=== PATIENT | male | born 1965 | race Caucasian/White ===

== ENCOUNTER 2020-08-18 12:48 | Emergency (ER) | payer OTHER ==
[2020-08-18 13:38] LABS: #Basophils 0.1 10x3/uL (0.0-0.2); #Eosinphils 0.1 10x3/uL (0.0-0.5); #Monocytes 1.3 10x3/uL (0.0-1.1); %Basophils 0.3 % (0.0-2.0); %Eosinophils 0.6 % (0.0-6.0); %Lymphocytes 13.9 % (18.0-47.0); %Monocytes 8.1 % (0.0-10.0); %Neutrophils 76.5 % (40.0-75.0); Hemoglobin 10.8 g/dL (13.5-17.5); Mean Corpuscular HGB CONC 33.5 g/dL (32.0-36.0); Mean Corpuscular Hemoglobin 30.9 pg (27.0-33.0); Mean Platelet Volume 9.8 fl (7.4-10.4); Platelet Count 190 10x3/uL (150-450); RBC Distribution Width 15.4 % (11.5-14.5); White Blood Cell (WBC) Count 15.7 10x3/uL (3.5-10.5)
[2020-08-18 13:51] LABS: ALT (SGPT) 12 U/L (8-55); AST (SGOT) 11 U/L (5-34); Albumin 3.6 g/dL (3.5-5.0); Alkaline Phosphatase 60 U/L (40-110); Anion Gap 13 mmol/L (10-20); BUN (Urea Nitrogen) 35 mg/dL (8.4-25.7); Bilirubin, Total 0.6 mg/dL (0.2-1.2); Calc. Creatinine Clearance 0 mL/min (70-130); Calcium 8.6 mg/dL (7.8-10.44); Carbon Dioxide 17 mmol/L (22-29); Chloride 106 mmol/L (98-107); Globulin 3.6 g/dL (2.4-3.5); Glucose 119 mg/dL (70-105); Potassium 4.1 mmol/L (3.5-5.1); Protein, Total 7.2 g/dL (6.0-8.3); Sodium 132 mmol/L (136-145)
[2020-08-18] MEDS ORDERED: Cefepime 2 GM VIAL ONE (13:58)
[2020-08-18] MEDS ORDERED: Aspirin 325 MG TAB ONE (13:58)
== END 2020-08-18 18:33 | disposition short-term general hospital (02) ==
LOC: CSHERS 12:48
DX: E11.69 Type 2 diabetes mellitus with other specified complication (principal); M86.9 Osteomyelitis, unspecified; R07.9 Chest pain, unspecified; D72.829 Elevated white blood cell count, unspecified; I10 Essential (primary) hypertension; I25.2 Old myocardial infarction; Z87.891 Personal history of nicotine dependence
CPT/HCPCS: 71045; 80053; 83605; 84484; 85025; 87040; 93005; 96365; 96366; 96367; J0692; J3370

== ENCOUNTER 2021-04-01 17:50 | Emergency (ER) | payer OTHER ==
[2021-04-01 18:25] LABS: #Basophils 0.1 10x3/uL (0.0-0.2); #Eosinphils 0.2 10x3/uL (0.0-0.5); #Monocytes 0.8 10x3/uL (0.0-1.1); #Neutrophils 5.2 10x3/uL (1.5-8.4); %Basophils 0.8 % (0.0-2.0); %Eosinophils 2.4 % (0.0-6.0); %Lymphocytes 28.5 % (18.0-47.0); %Monocytes 8.6 % (0.0-10.0); %Neutrophils 59.4 % (40.0-75.0); Hemoglobin 12.1 g/dL (13.5-17.5); Mean Corpuscular Hemoglobin 33.1 pg (27.0-33.0); Mean Corpuscular Volume 97.3 fl (81.2-95.1); Mean Platelet Volume 9.6 fl (7.4-10.4); Platelet Count 239 10x3/uL (150-450); RBC Distribution Width 12.2 % (11.5-14.5); Red Blood Cell (RBC) Count 3.66 10x6/uL (4.32-5.72); White Blood Cell (WBC) Count 8.8 10x3/uL (3.5-10.5)
[2021-04-01 18:42] LABS: ALT (SGPT) 14 U/L (8-55); AST (SGOT) 15 U/L (5-34); Albumin 3.6 g/dL (3.5-5.0); Alkaline Phosphatase 54 U/L (40-110); Anion Gap 13 mmol/L (10-20); BUN (Urea Nitrogen) 29 mg/dL (8.4-25.7); Bilirubin, Total 0.4 mg/dL (0.2-1.2); Calc. Creatinine Clearance 0 mL/min (70-130); Calcium 8.4 mg/dL (7.8-10.44); Carbon Dioxide 20 mmol/L (22-29); Chloride 110 mmol/L (98-107); Globulin 3.4 g/dL (2.4-3.5); Glucose 105 mg/dL (70-105); Potassium 5.6 mmol/L (3.5-5.1); Sodium 137 mmol/L (136-145)
[2021-04-01 20:51] LABS: Troponin I Less than 0.010 ng/mL (< 0.028)
== END 2021-04-01 21:35 | disposition home or self-care (01) ==
LOC: EEVIPCON 17:50 → CSHERS 17:50
DX: R07.9 Chest pain, unspecified (principal); I10 Essential (primary) hypertension; I25.2 Old myocardial infarction; I25.10 Atherosclerotic heart disease of native coronary artery without angina pectoris; E11.51 Type 2 diabetes mellitus with diabetic peripheral angiopathy without gangrene; Z87.891 Personal history of nicotine dependence; Z79.82 Long term (current) use of aspirin; Z79.84 Long term (current) use of oral hypoglycemic drugs; Z79.02 Long term (current) use of antithrombotics/antiplatelets; Z86.73 Personal history of transient ischemic attack (TIA), and cerebral infarction without residual deficits
CPT/HCPCS: 36415; 71045; 80053; 83880; 84484; 85025; 93005

== ENCOUNTER 2022-08-12 22:39 | Emergency (ER) | payer OTHER ==
[2022-08-13] MEDS ORDERED: Metoclopramide HCl 10 MG/2 ML VIAL ONE (00:01)
[2022-08-13 00:09] LABS: #Basophils 0.1 10x3/uL (0.0-0.2); #Eosinphils 0.1 10x3/uL (0.0-0.5); #Monocytes 0.7 10x3/uL (0.0-1.1); #Neutrophils 6.4 10x3/uL (1.5-8.4); %Basophils 0.8 % (0.0-2.0); %Eosinophils 1.4 % (0.0-6.0); %Lymphocytes 22.3 % (18.0-47.0); %Monocytes 7.4 % (0.0-10.0); %Neutrophils 67.8 % (40.0-75.0); Hemoglobin 13.2 g/dL (13.5-17.5); Mean Corpuscular HGB CONC 34.7 g/dL (32.0-36.0); Mean Platelet Volume 10.4 fl (7.4-10.4); Platelet Count 193 10x3/uL (150-450); RBC Distribution Width 13.8 % (11.5-14.5); White Blood Cell (WBC) Count 9.5 10x3/uL (3.5-10.5)
[2022-08-13 00:17] LABS: ALT (SGPT) 15 U/L (8-55); AST (SGOT) 16 U/L (5-34); Albumin 4.1 g/dL (3.5-5.0); Alkaline Phosphatase 68 U/L (40-110); Anion Gap 16 mmol/L (10-20); BUN (Urea Nitrogen) 21 mg/dL (8.4-25.7); Bilirubin, Total 0.4 mg/dL (0.2-1.2); Calc. Creatinine Clearance 0 mL/min (70-130); Carbon Dioxide 18 mmol/L (22-29); Chloride 109 mmol/L (98-107); Estimated GFR 68; Globulin 3.1 g/dL (2.4-3.5); Glucose 111 mg/dL (70-105); Potassium 4.4 mmol/L (3.5-5.1); Protein, Total 7.2 g/dL (6.0-8.3); Sodium 139 mmol/L (136-145)
[2022-08-13 00:45] LABS: SARS-CoV-2 NAA Rapid Test Not Detected (NotDetected)
[2022-08-13 01:41] LABS: Troponin I 0.021 ng/mL (< 0.028)
== END 2022-08-13 02:50 | disposition home or self-care (01) ==
LOC: EDBD 22:39 → CSHERS 22:39
DX: G43.909 Migraine, unspecified, not intractable, without status migrainosus (principal); R07.9 Chest pain, unspecified; I25.10 Atherosclerotic heart disease of native coronary artery without angina pectoris; E11.9 Type 2 diabetes mellitus without complications; K21.9 Gastro-esophageal reflux disease without esophagitis; I10 Essential (primary) hypertension; Z87.891 Personal history of nicotine dependence; Z79.899 Other long term (current) drug therapy; Z79.84 Long term (current) use of oral hypoglycemic drugs; Z79.4 Long term (current) use of insulin; Z20.822 Contact with and (suspected) exposure to COVID-19
CPT/HCPCS: 70450; 71045; 80053; 84484; 85025; 93005; 96365; J2765; U0002

== ENCOUNTER 2022-09-05 15:11 | Inpatient (IN) | payer OTHER ==
[~2022-09-05 15:11] MED LIST: Iopamidol 300 61% 100 ML VIAL FS ONE
[2022-09-05 17:11] LABS: #Eosinphils 0.1 10x3/uL (0.0-0.5); #Monocytes 0.6 10x3/uL (0.0-1.1); #Neutrophils 15.7 10x3/uL (1.5-8.4); %Basophils 0.2 % (0.0-2.0); %Eosinophils 0.6 % (0.0-6.0); %Lymphocytes 7.1 % (18.0-47.0); %Monocytes 3.1 % (0.0-10.0); %Neutrophils 88.2 % (40.0-75.0); Mean Corpuscular HGB CONC 34.1 g/dL (32.0-36.0); Mean Corpuscular Hemoglobin 32.5 pg (27.0-33.0); Mean Corpuscular Volume 95.4 fl (81.2-95.1); Mean Platelet Volume 10.4 fl (7.4-10.4); Platelet Count 162 10x3/uL (150-450); RBC Distribution Width 13.3 % (11.5-14.5); Red Blood Cell (RBC) Count 4.31 10x6/uL (4.32-5.72); White Blood Cell (WBC) Count 17.8 10x3/uL (3.5-10.5)
[2022-09-05] MEDS ORDERED: Acetaminophen 500 MG TAB ONE (17:16)
[2022-09-05] MEDS ORDERED: Vancomycin 1 GM VIAL ONE (17:17)
[2022-09-05] MEDS ORDERED: Cefepime 2 GM VIAL ONE (17:17)
[2022-09-05 17:26] LABS: ALT (SGPT) 14 U/L (8-55); AST (SGOT) 17 U/L (5-34); Alkaline Phosphatase 79 U/L (40-110); Anion Gap 14 mmol/L (10-20); BUN (Urea Nitrogen) 18 mg/dL (8.4-25.7); Bilirubin, Total 0.6 mg/dL (0.2-1.2); Calc. Creatinine Clearance 0 mL/min (70-130); Calcium 9.3 mg/dL (7.8-10.44); Carbon Dioxide 17 mmol/L (22-29); Chloride 110 mmol/L (98-107); Estimated GFR 79; Globulin 3.8 g/dL (2.4-3.5); Glucose 136 mg/dL (70-105); Potassium 3.8 mmol/L (3.5-5.1); Protein, Total 7.8 g/dL (6.0-8.3); Sodium 137 mmol/L (136-145)
[2022-09-05 18:29] LABS: SARS-CoV-2 NAA Rapid Test Not Detected (NotDetected)
[2022-09-05] MEDS ORDERED: HYDROcodone/Acetaminophen 5/325 mg Tablet PO PRN (20:20)
[2022-09-05] MEDS ORDERED: Zolpidem Tartrate 5 MG TAB PO PRN (20:20)
[2022-09-05] MEDS ORDERED: Ondansetron PF 4 MG/2 ML Vial IVP PRN (20:20)
[2022-09-05] MEDS ORDERED: Guaifenesin DM 100-10/5 ML UDCUP PO PRN (20:20)
[2022-09-05] MEDS ORDERED: Dextrose 5% in Water 1,000 ML IV PRN (20:20)
[2022-09-05] MEDS ORDERED: Acetaminophen 325 MG TAB PO PRN (20:20)
[2022-09-05] MEDS ORDERED: Senokot S 8.6-50 MG TAB PO PRN (20:20)
[2022-09-05] MEDS ORDERED: Calcium Carbonate 500 MG ChewTAB PO PRN (20:20)
[2022-09-05] MEDS ORDERED: Dextrose 50% Abboject 50 ML SYRINGE SLOW IVP PRN (20:20)
[2022-09-05] MEDS ORDERED: Pharmacy to Dose ABX/VANCOMYCIN IVPB PRN (20:28)
[2022-09-05] MEDS ORDERED: Atorvastatin Calcium 40 MG TAB ONE (22:41)
[2022-09-05] MEDS ORDERED: Carvedilol 12.5 MG TAB ONE (22:41)
[2022-09-05] MEDS ORDERED: Lactated Ringer's 1,000 ML IV SCH (23:00)
[2022-09-05] MEDS ORDERED: Atorvastatin Calcium 40 MG TAB PO SCH (23:00)
[2022-09-05] MEDS ORDERED: Artificial Tear Sol 15 ML BOT EA EYE SCH (23:00)
[2022-09-05] MEDS ORDERED: Carvedilol 3.125 MG TAB PO SCH (23:00)
[2022-09-05] MEDS ORDERED: Topiramate 100 MG TAB PO SCH ×2 (23:00→23:15)
[2022-09-06 04:03] LABS: #Eosinphils 0.2 10x3/uL (0.0-0.5); #Monocytes 0.7 10x3/uL (0.0-1.1); #Neutrophils 12.9 10x3/uL (1.5-8.4); %Basophils 0.2 % (0.0-2.0); %Eosinophils 1.3 % (0.0-6.0); %Lymphocytes 7.5 % (18.0-47.0); %Monocytes 4.3 % (0.0-10.0); %Neutrophils 85.8 % (40.0-75.0); Hemoglobin 12.7 g/dL (13.5-17.5); Mean Corpuscular HGB CONC 34.6 g/dL (32.0-36.0); Mean Corpuscular Hemoglobin 32.9 pg (27.0-33.0); Mean Corpuscular Volume 95.1 fl (81.2-95.1); Platelet Count 140 10x3/uL (150-450); RBC Distribution Width 13.6 % (11.5-14.5); Red Blood Cell (RBC) Count 3.86 10x6/uL (4.32-5.72); White Blood Cell (WBC) Count 15.1 10x3/uL (3.5-10.5)
[2022-09-06 04:19] LABS: Anion Gap 14 mmol/L (10-20); BUN (Urea Nitrogen) 16 mg/dL (8.4-25.7); Calc. Creatinine Clearance 0 mL/min (70-130); Carbon Dioxide 16 mmol/L (22-29); Chloride 113 mmol/L (98-107); Estimated GFR 101; Glucose 146 mg/dL (70-105); Potassium 3.7 mmol/L (3.5-5.1); Sodium 139 mmol/L (136-145)
[2022-09-06] MEDS: Cefepime 1 GM in Sodium Chloride 0.9% 100 ML IVPB SCH ×2 (05:10→17:58)
[2022-09-06] MEDS ORDERED: Cefepime 1 GM VIAL ONE (05:23)
[2022-09-06] MEDS ORDERED: Vancomycin 1 GM VIAL ONE (05:25)
[2022-09-06] MEDS: Vancomycin HCl 1 GM in Sodium Chloride 0.9% 250 ML 250 ML IVPB SCH ×3 (06:09→21:18)
[2022-09-06] MEDS ORDERED: Carvedilol 3.125 MG TAB ONE (08:29)
[2022-09-06] MEDS ORDERED: Clopidogrel Bisulfate 75 MG TAB ONE (08:32)
[2022-09-06] MEDS ORDERED: Furosemide 40 MG TAB ONE (08:32)
[2022-09-06] MEDS: Carvedilol 3.125 MG TAB PO SCH ×2 (08:50→19:05)
[2022-09-06] MEDS: Ferrous Sulfate 325 MG TAB PO SCH (08:50)
[2022-09-06] MEDS ORDERED: Furosemide 40 MG TAB PO SCH (09:00)
[2022-09-06] MEDS ORDERED: Lisinopril 5 MG TAB PO SCH (09:00)
[2022-09-06] MEDS ORDERED: Topiramate 100 MG TAB PO SCH ×2 (09:00)
[2022-09-06] MEDS: Clopidogrel Bisulfate 75 MG TAB PO SCH (09:04)
[2022-09-06] MEDS: Artificial Tear Sol 15 ML BOT EA EYE SCH ×2 (09:04→21:17)
[2022-09-06] MEDS: Spironolactone 25 MG TAB PO SCH (09:06)
[2022-09-06] MEDS: Topiramate 25 MG TAB PO SCH ×2 (09:06→21:18)
[2022-09-06] MEDS: Sertraline 25 MG TAB PO SCH (09:06)
[2022-09-06] MEDS: Furosemide 20 MG TAB PO SCH ×2 (09:09→21:18)
[2022-09-06] MEDS: HumaLOG 300 UNITS/3 ML VIAL SC PRN (12:20)
[2022-09-06] MEDS: Atorvastatin Calcium 40 MG TAB PO SCH (21:17)
[2022-09-07] MEDS: Cefepime 1 GM in Sodium Chloride 0.9% 100 ML IVPB SCH ×2 (04:45→17:56)
[2022-09-07 08:40] LABS: #Eosinphils 0.2 10x3/uL (0.0-0.5); #Monocytes 0.7 10x3/uL (0.0-1.1); #Neutrophils 9.6 10x3/uL (1.5-8.4); %Basophils 0.3 % (0.0-2.0); %Eosinophils 1.5 % (0.0-6.0); %Lymphocytes 9.8 % (18.0-47.0); %Neutrophils 81.9 % (40.0-75.0); Hemoglobin 12.7 g/dL (13.5-17.5); Mean Corpuscular HGB CONC 35.4 g/dL (32.0-36.0); Mean Corpuscular Hemoglobin 32.9 pg (27.0-33.0); Mean Platelet Volume 10.1 fl (7.4-10.4); Platelet Count 153 10x3/uL (150-450); RBC Distribution Width 13.2 % (11.5-14.5); Red Blood Cell (RBC) Count 3.86 10x6/uL (4.32-5.72); White Blood Cell (WBC) Count 11.8 10x3/uL (3.5-10.5)
[2022-09-07 08:48] LABS: Anion Gap 13 mmol/L (10-20); BUN (Urea Nitrogen) 16 mg/dL (8.4-25.7); Calc. Creatinine Clearance 0 mL/min (70-130); Calcium 8.7 mg/dL (7.8-10.44); Carbon Dioxide 17 mmol/L (22-29); Chloride 111 mmol/L (98-107); Estimated GFR 102; Glucose 162 mg/dL (70-105); Potassium 3.6 mmol/L (3.5-5.1); Sodium 137 mmol/L (136-145)
[2022-09-07 08:49] LABS: Vancomycin, Trough 13.9 ug/mL
[2022-09-07] MEDS: HYDROcodone/Acetaminophen 5/325 mg Tablet PO PRN ×2 (09:39→15:30)
[2022-09-07] MEDS: Carvedilol 3.125 MG TAB PO SCH ×2 (09:40→17:56)
[2022-09-07] MEDS: Topiramate 25 MG TAB PO SCH ×2 (09:41→20:58)
[2022-09-07] MEDS: Ferrous Sulfate 325 MG TAB PO SCH (09:43)
[2022-09-07] MEDS: Sertraline 25 MG TAB PO SCH (09:43)
[2022-09-07] MEDS: Clopidogrel Bisulfate 75 MG TAB PO SCH (09:44)
[2022-09-07] MEDS: Spironolactone 25 MG TAB PO SCH (09:48)
[2022-09-07] MEDS: Furosemide 20 MG TAB PO SCH ×2 (09:48→20:57)
[2022-09-07] MEDS: Vancomycin HCl 1 GM in Sodium Chloride 0.9% 250 ML 250 ML IVPB SCH ×2 (09:49→20:58)
[2022-09-07] MEDS: Artificial Tear Sol 15 ML BOT EA EYE SCH ×2 (10:51→20:56)
[2022-09-07] MEDS: HumaLOG 300 UNITS/3 ML VIAL SC PRN (12:35)
[2022-09-07] MEDS: metFORMIN 500 MG TAB PO SCH (17:56)
[2022-09-07] MEDS: Atorvastatin Calcium 40 MG TAB PO SCH (20:57)
[2022-09-08 04:55] LABS: #Basophils 0.1 10x3/uL (0.0-0.2); #Eosinphils 0.3 10x3/uL (0.0-0.5); #Monocytes 0.8 10x3/uL (0.0-1.1); #Neutrophils 5.9 10x3/uL (1.5-8.4); %Basophils 0.7 % (0.0-2.0); %Eosinophils 3.1 % (0.0-6.0); %Lymphocytes 21.4 % (18.0-47.0); %Neutrophils 65.2 % (40.0-75.0); Hemoglobin 11.6 g/dL (13.5-17.5); Mean Corpuscular HGB CONC 34.4 g/dL (32.0-36.0); Mean Corpuscular Hemoglobin 32.8 pg (27.0-33.0); Mean Corpuscular Volume 95.2 fl (81.2-95.1); Platelet Count 152 10x3/uL (150-450); RBC Distribution Width 13.4 % (11.5-14.5); Red Blood Cell (RBC) Count 3.54 10x6/uL (4.32-5.72); White Blood Cell (WBC) Count 9.1 10x3/uL (3.5-10.5)
[2022-09-08 05:13] LABS: Anion Gap 12 mmol/L (10-20); BUN (Urea Nitrogen) 22 mg/dL (8.4-25.7); Calc. Creatinine Clearance 0 mL/min (70-130); Calcium 8.4 mg/dL (7.8-10.44); Carbon Dioxide 18 mmol/L (22-29); Chloride 113 mmol/L (98-107); Estimated GFR 100; Glucose 155 mg/dL (70-105); Potassium 3.7 mmol/L (3.5-5.1); Sodium 139 mmol/L (136-145)
[2022-09-08] MEDS: Cefepime 1 GM in Sodium Chloride 0.9% 100 ML IVPB SCH ×2 (05:34→15:53)
[2022-09-08] MEDS: HumaLOG 300 UNITS/3 ML VIAL SC PRN (06:37)
[2022-09-08] MEDS ORDERED: Aspirin Chewable 81 MG TAB PO SCH (09:00)
[2022-09-08] MEDS: metFORMIN 500 MG TAB PO SCH ×2 (10:05→16:59)
[2022-09-08] MEDS: Topiramate 25 MG TAB PO SCH (10:05)
[2022-09-08] MEDS: Spironolactone 25 MG TAB PO SCH (10:05)
[2022-09-08] MEDS: Carvedilol 3.125 MG TAB PO SCH ×2 (10:05→16:59)
[2022-09-08] MEDS: Furosemide 20 MG TAB PO SCH (10:06)
[2022-09-08] MEDS: Sertraline 25 MG TAB PO SCH (10:06)
[2022-09-08] MEDS: Ferrous Sulfate 325 MG TAB PO SCH (10:06)
[2022-09-08] MEDS: Clopidogrel Bisulfate 75 MG TAB PO SCH (10:06)
[2022-09-08] MEDS: Artificial Tear Sol 15 ML BOT EA EYE SCH (10:07)
[2022-09-08] MEDS: Vancomycin HCl 1 GM in Sodium Chloride 0.9% 250 ML 250 ML IVPB SCH (10:07)
[2022-09-08 17:13] VITALS: BP 139/63; TEMP 98.2
== END 2022-09-08 19:00 | DRG 872 ==
LOC: CSHERS 15:11 → CSHERHOLD 22:34 → EEVIPCON 22:34 → CSHTELE 09-06 16:51
PROVIDERS: ADMIT Student in an Organized Health Care Education/Training Program; ATTEND Nurse Practitioner Family
DX: A41.9 Sepsis, unspecified organism (principal); L03.116 Cellulitis of left lower limb; E87.20 Acidosis, unspecified; Z20.822 Contact with and (suspected) exposure to COVID-19; I25.10 Atherosclerotic heart disease of native coronary artery without angina pectoris; I11.0 Hypertensive heart disease with heart failure; E78.5 Hyperlipidemia, unspecified; F32.A Depression, unspecified; D50.9 Iron deficiency anemia, unspecified; I50.9 Heart failure, unspecified; K21.9 Gastro-esophageal reflux disease without esophagitis; E11.9 Type 2 diabetes mellitus without complications; Z79.4 Long term (current) use of insulin; Z79.82 Long term (current) use of aspirin; Z79.899 Other long term (current) drug therapy; Z79.02 Long term (current) use of antithrombotics/antiplatelets; Z79.84 Long term (current) use of oral hypoglycemic drugs; Z88.8 Allergy status to other drugs, medicaments and biological substances; Z86.73 Personal history of transient ischemic attack (TIA), and cerebral infarction without residual deficits; Z90.49 Acquired absence of other specified parts of digestive tract; Z95.1 Presence of aortocoronary bypass graft; Z95.5 Presence of coronary angioplasty implant and graft; Z98.49 Cataract extraction status, unspecified eye; Z82.49 Family history of ischemic heart disease and other diseases of the circulatory system; Z83.3 Family history of diabetes mellitus; Z87.891 Personal history of nicotine dependence
CPT/HCPCS: 36415; 36416; 80048; 80053; 80202; 83605; 85025; 87040; J0692; J1650; J1815; J3370; J3490; J7050; J7120; Q9967; U0002

== ENCOUNTER 2022-11-21 11:37 | Emergency (ER) | payer OTHER ==
[2022-11-21 12:27] LABS: #Basophils 0.1 10x3/uL (0.0-0.2); #Eosinphils 0.4 10x3/uL (0.0-0.5); #Monocytes 0.5 10x3/uL (0.0-1.1); #Neutrophils 5.2 10x3/uL (1.5-8.4); %Basophils 1.2 % (0.0-2.0); %Eosinophils 4.6 % (0.0-6.0); %Lymphocytes 22.1 % (18.0-47.0); %Monocytes 6.6 % (0.0-10.0); %Neutrophils 65.1 % (40.0-75.0); Mean Corpuscular HGB CONC 34.4 g/dL (32.0-36.0); Mean Corpuscular Hemoglobin 33.6 pg (27.0-33.0); Mean Corpuscular Volume 97.7 fl (81.2-95.1); Mean Platelet Volume 10.2 fl (7.4-10.4); Platelet Count 214 10x3/uL (150-450); RBC Distribution Width 12.7 % (11.5-14.5); Red Blood Cell (RBC) Count 3.87 10x6/uL (4.32-5.72); White Blood Cell (WBC) Count 8.1 10x3/uL (3.5-10.5)
[2022-11-21 13:15] LABS: ALT (SGPT) 14 U/L (8-55); AST (SGOT) 15 U/L (5-34); Albumin 3.8 g/dL (3.5-5.0); Alkaline Phosphatase 75 U/L (40-110); Anion Gap 10 mmol/L (10-20); BUN (Urea Nitrogen) 13 mg/dL (8.4-25.7); Bilirubin, Total 0.6 mg/dL (0.2-1.2); Calc. Creatinine Clearance 0 mL/min (70-130); Calcium 8.5 mg/dL (7.8-10.44); Carbon Dioxide 22 mmol/L (22-29); Chloride 111 mmol/L (98-107); Estimated GFR 101; Globulin 3.2 g/dL (2.4-3.5); Glucose 116 mg/dL (70-105); Potassium 4.2 mmol/L (3.5-5.1); Sodium 139 mmol/L (136-145)
== END 2022-11-21 13:30 ==
LOC: CSHERS 11:37 → EEVIPCON 11:37 → CSHERS 13:30
DX: R07.89 Other chest pain (principal); E11.51 Type 2 diabetes mellitus with diabetic peripheral angiopathy without gangrene; I10 Essential (primary) hypertension; K21.9 Gastro-esophageal reflux disease without esophagitis; Z87.891 Personal history of nicotine dependence; Z79.4 Long term (current) use of insulin
CPT/HCPCS: 71045; 80053; 83880; 84484; 85025; 93005

== ENCOUNTER 2023-11-02 02:42 | Observation (INO) | payer OTHER ==
[2023-11-02 03:15] LABS: #Eosinphils 0.43 10x3/uL (0.0-0.5); #Monocytes 0.83 10x3/uL (0.0-1.1); #Neutrophils 4.72 10x3/uL (1.5-8.4); %Basophils 1.2 % (0.0-2.0); %Eosinophils 5.2 % (0.0-6.0); %Lymphocytes 26.9 % (18.0-47.0); %Neutrophils 56.6 % (40.0-75.0); Hematocrit 38.5 % (38.8-50.0); Hemoglobin 13.8 g/dL (13.5-17.5); Mean Corpuscular HGB CONC 35.8 g/dL (32.0-36.0); Mean Corpuscular Hemoglobin 34.3 pg (27.0-33.0); Mean Corpuscular Volume 95.8 fL (81.2-95.1); Mean Platelet Volume 9.7 fL (7.4-10.4); Platelet Count 199 10x3/uL (150-450); RBC Distribution Width 12.8 % (11.5-14.5); Red Blood Cell (RBC) Count 4.02 10x6/uL (4.32-5.72); White Blood Cell (WBC) Count 8.3 10x3/uL (3.5-10.5)
[2023-11-02 03:29] LABS: ALT (SGPT) 17 U/L (8-55); AST (SGOT) 17 U/L (5-34); Albumin 3.8 g/dL (3.5-5.0); Alkaline Phosphatase 68 U/L (40-110); Anion Gap 15 mmol/L (10-20); BUN (Urea Nitrogen) 40 mg/dL (8.4-25.7); Bilirubin, Total 0.3 mg/dL (0.2-1.2); Calc. Creatinine Clearance 0 mL/min (70-130); Calcium 8.9 mg/dL (7.8-10.44); Carbon Dioxide 20 mmol/L (22-29); Chloride 105 mmol/L (98-107); Estimated GFR 72; Globulin 3.5 g/dL (2.4-3.5); Glucose 108 mg/dL (70-105); Potassium 4.5 mmol/L (3.5-5.1); Protein, Total 7.3 g/dL (6.0-8.3); Sodium 135 mmol/L (136-145)
[2023-11-02 03:35] LABS: Troponin I Less than 0.010 ng/mL (< 0.028)
[2023-11-02 06:05] LABS: Troponin I 0.014 ng/mL (< 0.028)
[2023-11-02] MEDS ORDERED: HumaLOG 300 UNITS/3 ML VIAL SC PRN (06:12)
[2023-11-02] MEDS ORDERED: Acetaminophen 325 MG TAB PO PRN (06:12)
[2023-11-02] MEDS ORDERED: Dextrose 5% in Water 1,000 ML IV PRN (06:12)
[2023-11-02] MEDS ORDERED: Glucagon 1 MG/ML KIT IM PRN (06:12)
[2023-11-02] MEDS ORDERED: Calcium Carbonate 500 MG ChewTAB PO PRN (06:12)
[2023-11-02] MEDS ORDERED: Dextrose 50% Abboject 50 ML SYRINGE SLOW IVP PRN (06:12)
[2023-11-02] MEDS ORDERED: Senokot S 8.6-50 MG TAB PO PRN (06:12)
[2023-11-02] MEDS ORDERED: Ondansetron PF 4 MG/2 ML Vial IVP PRN (06:12)
[2023-11-02] MEDS ORDERED: Guaifenesin DM 100-10/5 ML UDCUP PO PRN (06:12)
[2023-11-02] MEDS ORDERED: Nitroglycerin 0.4 MG TAB (25 Tab Bottle) SL PRN (06:15)
[2023-11-02 06:52] VITALS: BMI 27.3
[2023-11-02] MEDS: Enoxaparin 40 MG (0.4 mL) SYRINGE SC SCH (09:09)
[2023-11-02] MEDS: Clopidogrel Bisulfate 75 MG TAB PO SCH (09:10)
[2023-11-02] MEDS: Pantoprazole DR 40 MG TAB PO SCH (09:10)
[2023-11-02] MEDS: Loratadine 10 MG TAB PO SCH (09:10)
[2023-11-02] MEDS: Carvedilol 6.25 MG TAB PO SCH (09:10)
[2023-11-02] MEDS: Amlodipine 5 MG TAB PO SCH (09:10)
[2023-11-02] MEDS: Isosorbide Mononitrate 60 MG ER.TAB PO SCH (09:10)
[2023-11-02] MEDS: Furosemide 20 MG TAB PO SCH (09:10)
[2023-11-02] MEDS: metFORMIN 500 MG TAB PO SCH (09:11)
[2023-11-02] MEDS: Losartan 50 MG TAB PO SCH (09:11)
[2023-11-02] MEDS: Sertraline 100 MG TAB PO SCH (09:11)
[2023-11-02] MEDS: Aspirin Chewable 81 MG TAB PO SCH (09:11)
[2023-11-02] MEDS: Topiramate 100 MG TAB PO SCH (09:12)
[2023-11-02 10:29] VITALS: BP 177/76; TEMP 97.8
[2023-11-02 11:13] LABS: Troponin I 0.015 ng/mL (< 0.028)
[2023-11-02] MEDS ORDERED: Atorvastatin Calcium 40 MG TAB PO SCH (21:00)
[2023-11-02] MEDS ORDERED: Aripiprazole 10 MG TAB PO SCH (21:00)
== END 2023-11-02 12:58 | disposition home or self-care (01) ==
LOC: CSHERS 02:42 → CSHTELE 06:27 → EEVIPCON 06:27 → INTOOBSV 06:27
PROVIDERS: ADMIT Student in an Organized Health Care Education/Training Program; ATTEND Internal Medicine
DX: R07.2 Precordial pain (principal); K21.9 Gastro-esophageal reflux disease without esophagitis; I16.0 Hypertensive urgency; E79.89 Other specified disorders of purine and pyrimidine metabolism; E11.9 Type 2 diabetes mellitus without complications; F32.A Depression, unspecified; F39 Unspecified mood [affective] disorder; E78.5 Hyperlipidemia, unspecified; Z86.73 Personal history of transient ischemic attack (TIA), and cerebral infarction without residual deficits; Z95.1 Presence of aortocoronary bypass graft; Z98.49 Cataract extraction status, unspecified eye; Z90.49 Acquired absence of other specified parts of digestive tract; Z98.890 Other specified postprocedural states; Z87.891 Personal history of nicotine dependence; Z79.84 Long term (current) use of oral hypoglycemic drugs; Z79.02 Long term (current) use of antithrombotics/antiplatelets; Z79.82 Long term (current) use of aspirin; Z79.899 Other long term (current) drug therapy; Z88.8 Allergy status to other drugs, medicaments and biological substances; Z88.2 Allergy status to sulfonamides; Z88.6 Allergy status to analgesic agent
CPT/HCPCS: 36415; 36416; 71045; 80053; 83880; 84484; 85025; 93005; 96372; G0378; J1650; J1815